=== PATIENT | female | born 1960 | race American Indian/Alaskan Native ===

== ENCOUNTER 2017-06-24 06:29 | Day surgery (SDC) | payer OTHER ==
[2017-06-24] MEDS ORDERED: WATER FOR IRRIG STERILE IR ONE (07:12)
[2017-06-24] MEDS ORDERED: WATER FOR IRRIG STERILE ONE (07:13)
[2017-06-24] MEDS ORDERED: DIPRIVAN 10 MG/ML IV ONE ×2 (07:14)
[2017-06-24] MEDS ORDERED: XYLOCAINE MPF 2% ONE (07:30)
--- NOTE | 2017-06-24 07:38 | Anesthesia Day of Surgery ---
Anesthesia Day of Surgery - Day of Surgery Patient Examined: Yes Patient H&P Reviewed: Yes Patient is NPO: Yes
--- NOTE | 2017-06-24 07:40 | Anesthesia Consultation ---
Anesthesia Consult and Med Hx Date of service: 06/24/17 - Airway Anesthetic Teeth Evaluation: Partials (upper) ROM Head & Neck: Adequate Mental/Hyoid Distance: Adequate Mallampati Class: Class III Intubation Access Assessment: Probably Good - Pulmonary Exam CTA: Yes - Cardiac Exam Cardiac Exam: RRR - Pre-Operative Health Status ASA Pre-Surgery Classification: ASA3 Proposed Anesthetic Plan: General - Pulmonary Hx Smoking: Yes (0.5ppd x 20yrs) - Cardiovascular System Hx Hypertension: Yes (CHF) - Endocrine Hx Hypothyroidism: Yes
[2017-06-24] MEDS ORDERED: NACL 0.9% 1000 ML 1,000 ML IV SCH (08:00)
--- NOTE | 2017-06-24 08:30 | Short Stay Summary ---
Short Stay Documentation - Allergies and Medications Current Medications: Allergies codeine Adverse Reaction (Verified 06/24/17 07:22) Rash,ITCHING Home Medications Medication Instructions Recorded Confirmed Last Taken Type Amlodipine Besylate 5 mg PO DAILY 06/24/17 06/24/17 06/23/17 History Hydrochlorothiazide 12.5 mg PO DAILY 06/24/17 06/24/17 06/23/17 History Levothyroxine 8.8 mcg PO DAILY 06/24/17 06/24/17 06/23/17 History Propranolol 40 mg PO DAILY 06/24/17 06/24/17 06/23/17 History Simvastatin 20 mg PO DAILY 06/24/17 06/24/17 06/23/17 History Active Medications Sodium Chloride (Nacl 0.9% 1000 Ml) 1,000 mls @ 50 mls/hr IV DIRECT JOSE RAUL Last Admin: 06/24/17 08:16 Dose: 50 mls/hr - Brief post op/procedure progress note Date of procedure: 06/24/17 Pre-op diagnosis: Colon cancer screening Post-op diagnosis: same (1. Colon polyps 2. Diverticulosis 3. Hemorrhoid, internal) Procedure: Colonoscopy with snare polypectomy and with cold biopsy polypectomy Anesthesia: MAC Findings: as above Surgeon: IMANI HEATH Estimated blood loss: none Pathology: list (1. Transverse colo polyp 2. Sigmoid polyps 3. Rectal polyp) Specimen disposition: to lab Condition: stable - Disposition Condition at discharge: Stable Disposition: DC-01 TO HOME OR SELFCARE Short Stay Discharge Plan Activity: no restrictions Weight Bearing Status: Full Weight Bearing Diet: regular Follow up with: MELIZA CHUNG MD [Primary Care Provider] - 7 Days
--- NOTE | 2017-06-24 08:32 | Post Anesthesia Evaluation ---
- Post Anesthesia Evaluation Patient Participated: Yes Airway Patent: Yes Stable Respiratory Function: Yes Nausea/Vomiting: No Temp > 96.8F: Yes Pain Manageable: Yes Adequeate Hydration: Yes Anesthesia Complications: No
[2017-06-24 08:47] VITALS: BP 126/77
== END 2017-06-24 06:30 | disposition home or self-care (01) ==
LOC: GIO 06:29
PROVIDERS: ATTEND Internal Medicine Gastroenterology
DX: Z12.11 Encounter for screening for malignant neoplasm of colon (principal); D12.3 Benign neoplasm of transverse colon; K63.5 Polyp of colon; D12.8 Benign neoplasm of rectum; K64.8 Other hemorrhoids; K57.30 Diverticulosis of large intestine without perforation or abscess without bleeding; J45.909 Unspecified asthma, uncomplicated; I11.0 Hypertensive heart disease with heart failure; I50.9 Heart failure, unspecified; E03.9 Hypothyroidism, unspecified; E78.00 Pure hypercholesterolemia, unspecified; G43.909 Migraine, unspecified, not intractable, without status migrainosus; F17.210 Nicotine dependence, cigarettes, uncomplicated; Z88.5 Allergy status to narcotic agent; Z79.899 Other long term (current) drug therapy; Z90.710 Acquired absence of both cervix and uterus
CPT/HCPCS: 45380; 45385; 88305; J2704; J7030

== ENCOUNTER 2017-12-01 20:40 | Emergency (ER) | payer OTHER ==
[2017-12-01 21:51] VITALS: BP 114/65
[2017-12-01 23:41] LABS: Basophils # (Auto) 0.1 K/mm3 (0.0-0.1); Basophils % (Auto) 0.6 % (0.0-1.8); Eosinophils # (Auto) 0.1 K/mm3 (0.0-0.4); Eosinophils % (Auto) 1.3 % (0.0-4.3); Hematocrit 42.5 % (30.3-42.9); Hemoglobin 13.7 gm/dl (10.1-14.3); Lymphocytes # (Auto) 2.6 K/mm3 (1.2-5.4); Lymphocytes % (Auto) 30.2 % (13.4-35.0); Mean Corpuscular HGB Conc 32 % (30-34); Mean Corpuscular Hemoglobin 27 pg (28-32); Mean Corpuscular Volume 85 fl (79-97); Monocytes # (Auto) 0.8 K/mm3 (0.0-0.8); Monocytes % (Auto) 9.8 % (0.0-7.3); Platelet Count 341 K/mm3 (140-440); Red Cell Distribution Width 13.7 % (13.2-15.2)
[2017-12-01 23:47] LABS: BUN/Creatinine Ratio 26; Blood Urea Nitrogen 18 mg/dL (7-17); Calcium 9.1 mg/dL (8.4-10.2); Hemolysis Index 5
--- NOTE | 2017-12-02 00:17 | XRay Report ---
FINAL REPORT EXAM: XR CHEST ROUTINE 2V HISTORY: shortness of breath TECHNIQUE: PA and lateral views of the chest were submitted. FINDINGS: The lungs are hyper inflated. There are no localized infiltrates or effusions. The lungs are not congested. The heart size is normal. The skeletal structures are well-maintained IMPRESSION: Hyperinflation. No acute process in the chest.
== END 2017-12-02 05:04 | disposition left against medical advice (07) ==
LOC: ED 20:40
DX: Z53.21 Procedure and treatment not carried out due to patient leaving prior to being seen by health care provider (principal)
CPT/HCPCS: 36415; 71046; 80048; 85025; 87040; 93005; 93010

== ENCOUNTER 2018-08-21 05:00 | Emergency (ER) | payer OTHER ==
[2018-08-21] MEDS ORDERED: PROVENTIL IH ONE (06:12)
--- NOTE | 2018-08-21 06:38 | XRay Report ---
FINAL REPORT EXAM: XR CHEST ROUTINE 2V HISTORY: Shortness of breath TECHNIQUE: PA and lateral chest radiographs PRIORS: 12/01/2017 FINDINGS: No mediastinal shift. Cardiac silhouette is not enlarged. No pneumothorax, effusion, or focal pulmonary opacity. No acute skeletal finding. IMPRESSION: No focal pulmonary opacity.
[2018-08-21 06:39] LABS: Basophils # (Auto) 0.1 K/mm3 (0.0-0.1); Basophils % (Auto) 1.3 % (0.0-1.8); Eosinophils # (Auto) 0.5 K/mm3 (0.0-0.4); Eosinophils % (Auto) 5.9 % (0.0-4.3); Hematocrit 44.3 % (30.3-42.9); Hemoglobin 14.2 gm/dl (10.1-14.3); Lymphocytes # (Auto) 1.1 K/mm3 (1.2-5.4); Lymphocytes % (Auto) 13.8 % (13.4-35.0); Mean Corpuscular HGB Conc 32 % (30-34); Mean Corpuscular Hemoglobin 28 pg (28-32); Mean Corpuscular Volume 87 fl (79-97); Monocytes # (Auto) 0.3 K/mm3 (0.0-0.8); Monocytes % (Auto) 3.6 % (0.0-7.3); Platelet Count 237 K/mm3 (140-440); Red Blood Count 5.11 M/mm3 (3.65-5.03); Red Cell Distribution Width 14.2 % (13.2-15.2)
[2018-08-21 06:43] LABS: BUN/Creatinine Ratio 20; Blood Urea Nitrogen 14 mg/dL (7-17); Calcium 9.2 mg/dL (8.4-10.2); Hemolysis Index 9
[2018-08-21] MEDS ORDERED: XOPENEX IH ONE (07:01)
[2018-08-21] MEDS ORDERED: SOLU-Medrol IV ONE (07:01)
[2018-08-21] MEDS ORDERED: ATROVENT IH ONE (07:01)
--- NOTE | 2018-08-21 07:03 | Emergency Department Report ---
ED Asthma HPI - General Chief Complaint: Adult Asthma Stated Complaint: WALLACE Time Seen by Provider: 08/21/18 06:55 Source: EMS Mode of arrival: Stretcher Limitations: No Limitations - History of Present Illness Initial Comments: Patient is 58 years old female with history of hypertension and congestive heart failure and a recent diagnosis of asthma by her primary care physician. Patient presented to the ER complaining or shortness of breath and wheezing for the last 3 days associated with his productive cough of greenish sputum. Patient denied any fever, chest pain, nausea or vomiting. MD Complaint: shortness of breath, wheezing Asthma History: adult onset Context: recent URI Associated Symptoms: productive cough Treatments Prior to Arrival: inhaled bronchodilator - Related Data Current Asthma Therapy: inhaled bronchodilator Home Medications Medication Instructions Recorded Confirmed Last Taken Amlodipine Besylate 5 mg PO DAILY 06/24/17 06/24/17 06/23/17 Hydrochlorothiazide 12.5 mg PO DAILY 06/24/17 06/24/17 06/23/17 Levothyroxine 8.8 mcg PO DAILY 06/24/17 06/24/17 06/23/17 Propranolol 40 mg PO DAILY 06/24/17 06/24/17 06/23/17 Simvastatin 20 mg PO DAILY 06/24/17 06/24/17 06/23/17 Allergies Allergy/AdvReac Type Severity Reaction Status Date / Time codeine AdvReac Rash,ITCHIN Verified 06/24/17 07:22 G ED Review of Systems ROS: Stated complaint: WALLACE Other details as noted in HPI Comment: All other systems reviewed and negative Constitutional: denies: chills, fever Respiratory: cough, shortness of breath, SOB with exertion, SOB at rest, wheezing. denies: orthopnea, stridor Cardiovascular: denies: chest pain, palpitations, dyspnea on exertion Gastrointestinal: denies: abdominal pain, nausea, vomiting Genitourinary: denies: urgency, dysuria, frequency, hematuria Neurological: denies: headache, weakness ED Past Medical Hx - Past Medical History Hx Hypertension: Yes Hx Congestive Heart Failure: Yes Hx Asthma: Yes - Social History Smoking Status: Never Smoker Substance Use Type: None - Medications Home Medications: Home Medications Medication Instructions Recorded Confirmed Last Taken Type Amlodipine Besylate 5 mg PO DAILY 06/24/17 06/24/17 06/23/17 History Hydrochlorothiazide 12.5 mg PO DAILY 06/24/17 06/24/17 06/23/17 History Levothyroxine 8.8 mcg PO DAILY 06/24/17 06/24/17 06/23/17 History Propranolol 40 mg PO DAILY 06/24/17 06/24/17 06/23/17 History Simvastatin 20 mg PO DAILY 06/24/17 06/24/17 06/23/17 History ED Physical Exam - General Limitations: No Limitations General appearance: alert, in distress (moderate respiratory distress) - Head Head exam: Present: atraumatic, normocephalic, normal inspection - Eye Eye exam: Present: normal appearance - ENT ENT exam: Present: normal exam, normal orophraynx, mucous membranes moist - Neck Neck exam: Present: normal inspection, full ROM. Absent: tenderness, meningismus, lymphadenopathy, thyromegaly - Respiratory Respiratory exam: Present: respiratory distress, wheezes, rhonchi, accessory muscle use, decreased breath sounds, prolonged expiratory. Absent: rales, stridor, chest wall tenderness - Cardiovascular Cardiovascular Exam: Present: regular rate, normal rhythm, normal heart sounds - GI/Abdominal GI/Abdominal exam: Present: soft, normal bowel sounds. Absent: distended, tenderness, guarding, rebound, rigid, organomegaly, mass, bruit, pulsatile mass , hernia - Extremities Exam Extremities exam: Present: normal inspection, full ROM, normal capillary refill - Back Exam Back exam: Present: normal inspection, full ROM. Absent: CVA tenderness (R), CVA tenderness (L), muscle spasm, paraspinal tenderness, vertebral tenderness, rash noted - Neurological Exam Neurological exam: Present: alert, oriented X3, CN II-XII intact, normal gait, reflexes normal - Skin Skin exam: Present: warm, intact, normal color ED Course Vital Signs 08/21/18 08/21/18 08/21/18 06:07 07:38 08:20 Temperature Pulse Rate 62 Pulse Rate [ 64 67 Anterior Bilateral Throughout] Respiratory 16 Rate Respiratory 20 20 Rate [Anterior Bilateral Throughout] Blood Pressure 112/69 [Left] O2 Sat by Pulse 98 Oximetry 08/21/18 08/21/18 08:55 09:00 Temperature 97.5 F L Pulse Rate 63 Pulse Rate [ Anterior Bilateral Throughout] Respiratory 16 14 Rate Respiratory Rate [Anterior Bilateral Throughout] Blood Pressure 127/67 [Left] O2 Sat by Pulse Oximetry ED Medical Decision Making - Lab Data Result diagrams: 08/21/18 06:07 08/21/18 06:07 - Radiology Data Radiology results: report reviewed Referring Physician: ALICIA HUDSON Patient Name: PATRICE BRITT Date of : 1960 Sex: Female Report Date: 2018-08-21 Report Status: Finalized Findings [facility] [address] [place] [address] XRay Report Signed Patient: PATRICE BRITT MR#: [id number] : 1960 Acct:[id number] Age/Sex: 58 / F ADM Date: 08/21/18 Loc: ED Attending Dr: Ordering Physician: ALICIA HUDSON MD Date of Service: 08/21/18 Procedure(s): XR chest routine 2V Accession Number(s): [id number] cc: ALICIA HUDSON MD Fluoro Time In Minutes: FINAL REPORT EXAM: XR CHEST ROUTINE 2V HISTORY: Shortness of breath TECHNIQUE: PA and lateral chest radiographs PRIORS: 12/01/2017 FINDINGS: No mediastinal shift. Cardiac silhouette is not enlarged. No pneumothorax, effusion, or focal pulmonary opacity. No acute skeletal finding. IMPRESSION: No focal pulmonary opacity. Transcribed By: MB Dictated By: FARHAT SOTO MD Electronically Authenticated By: FARHAT SOTO MD Signed Date/Time: 08/21/18636 DD/ 6 TD/TT: 08/21/18636 - Medical Decision Making Patient said that she is feeling much better. Patient received xopnex and Atrovent. I prescribed the patient Levaquin daily and advised that to follow up with her primary care physician in the next 2-3 days and to return to the ER if her symptoms are not improving. Critical Care Time: Yes Critical care time in (mins) excluding proc time.: 30 Critical care attestation.: If time is entered above; I have spent that time in minutes in the direct care of this critically ill patient, excluding procedure time. ED Disposition Clinical Impression: Asthma exacerbation, Acute bronchitis Disposition: DC-01 TO HOME OR SELFCARE Is pt being admited?: No Condition: Stable Instructions: Asthma (ED), Acute Bronchitis (ED) Referrals: PRIMARY CARE, [Primary Care Provider] - 3-5 Days
[2018-08-21 11:03] VITALS: BP 115/68
== END 2018-08-21 09:30 | disposition home or self-care (01) ==
LOC: ED 05:00
DX: J45.901 Unspecified asthma with (acute) exacerbation (principal); J20.9 Acute bronchitis, unspecified; I11.0 Hypertensive heart disease with heart failure; I50.9 Heart failure, unspecified
CPT/HCPCS: 36415; 71046; 80048; 85025; 94640; 96374; 99291; J2930

== ENCOUNTER 2018-10-26 12:38 | Outpatient (CLI) | payer OTHER ==
[2018-10-26 13:15] LABS: Basophils # (Auto) 0.1 K/mm3 (0.0-0.1); Basophils % (Auto) 1.3 % (0.0-1.8); Eosinophils # (Auto) 0.3 K/mm3 (0.0-0.4); Hematocrit 43.4 % (30.3-42.9); Hemoglobin 14.2 gm/dl (10.1-14.3); Lymphocytes # (Auto) 1.4 K/mm3 (1.2-5.4); Lymphocytes % (Auto) 22.6 % (13.4-35.0); Mean Corpuscular HGB Conc 33 % (30-34); Mean Corpuscular Volume 86 fl (79-97); Monocytes # (Auto) 0.6 K/mm3 (0.0-0.8); Monocytes % (Auto) 10.1 % (0.0-7.3); Platelet Count 313 K/mm3 (140-440); Red Blood Count 5.04 M/mm3 (3.65-5.03)
[2018-10-26 15:10] LABS: Chol/HDL Ratio 2.32 %
== END 2018-10-26 12:39 | disposition home or self-care (01) ==
LOC: LAB 12:38
PROVIDERS: ATTEND Internal Medicine
DX: J44.9 Chronic obstructive pulmonary disease, unspecified (principal); J30.89 Other allergic rhinitis; I10 Essential (primary) hypertension; E07.9 Disorder of thyroid, unspecified; E78.00 Pure hypercholesterolemia, unspecified; E03.9 Hypothyroidism, unspecified; Z87.891 Personal history of nicotine dependence
CPT/HCPCS: 36415; 36600; 80061; 82785; 82803; 84436; 84443; 85025